=== PATIENT | male | born 1960 | race Caucasian/White ===

== ENCOUNTER 2021-11-08 09:00 | Outpatient (NON) | payer OTHER, SELFPAY | END 2021-11-08 09:01 | disposition home or self-care (01) | PROVIDERS: PCP Nurse Practitioner; Visit Provider Nurse Practitioner | DX: D22.39 Melanocytic nevi of other parts of face (principal); D22.5 Melanocytic nevi of trunk; L73.8 Other specified follicular disorders | CPT/HCPCS: 88305 ==